=== PATIENT | female | born 1990 | race Caucasian/White ===

== ENCOUNTER 2019-06-09 16:12 | Inpatient (IN) | payer OTHER ==
[~2019-06-09] VITALS: Ht 160 cm; Wt 88.5 kg
[2019-06-09] MEDS ORDERED: PREN-380 PO (16:48)
[2019-06-09 17:02] VITALS: BP 123/69
[2019-06-09] MEDS ORDERED: LACTATED RINGERS 1,000 ML IV SCH (18:05)
[2019-06-09] MEDS ORDERED: CITRIC ACID/SODIUM CITRATE 30 ML UDC PO SCH (18:05)
[2019-06-09 18:44] LABS: BASOPHILS % (AUTO) 0.4 % (0.0-2.0); EOSINOPHILS # (AUTO) 0.1 K/uL (0-0.4); EOSINOPHILS % (AUTO) 0.8 % (0.0-4.0); HEMATOCRIT 37.7 % (36-48); HEMOGLOBIN 12.7 g/dL (12.0-16.0); LYMPHOCYTES # (AUTO) 1.8 K/uL (2.5-16.5); LYMPHOCYTES % (AUTO) 17.4 % (20.5-51.1); MEAN CORPUSCULAR HEMOGLOBIN 30 pg (27-31); MEAN CORPUSCULAR HGB CONC 34 g/dL (33-37); MEAN CORPUSCULAR VOLUME 89.2 fL (80-94); MONOCYTES # (AUTO) 0.7 K/uL (0.8-1.0); MONOCYTES % (AUTO) 6.3 % (1.7-9.3); NEUTROPHILS # (AUTO) 7.9 K/uL (1.8-7.7); NEUTROPHILS % (AUTO) 75.1 % (42.2-75.2); PLATELET COUNT (AUTO) 260 K/uL (140-450); RED BLOOD CELL COUNT(AUTO) 4.23 MIL/uL (4.20-5.40); RED CELL DISTRIBUTION WIDTH 15.2 % (11.6-13.7); WHITE BLOOD COUNT (AUTO) 10.5 K/uL (4.8-10.8)
[2019-06-09 19:07] LABS: ALBUMIN 2.7 g/dL (3.4-5.0); ANION GAP 16.8 (8-16); CREATININE 0.5 mg/dL (0.6-1.3); POTASSIUM 3.8 mmol/L (3.5-5.1); TOTAL BILIRUBIN 0.3 mg/dL (0.0-1.0)
[2019-06-09 19:15] LABS: APPEARANCE,URINE CLEAR (CLEAR); BILIRUBIN,URINE NEGATIVE (NEGATIVE); BLOOD, URINE NEGATIVE (NEGATIVE); COLOR,URINE YELLOW (YELLOW); LEUKOCYTE ESTERASE ,URINE NEGATIVE (NEGATIVE); NITRITE, URINE NEGATIVE (NEGATIVE); UGLUCOSE NEGATIVE (NEGATIVE)
[2019-06-09] MEDS ORDERED: CITRIC ACID/SODIUM CITRATE 30 ML UDC ONE (21:42)
[2019-06-09] MEDS ORDERED: MORPHINE PRES FREE 10 MG/10 ML AMP IV ONE (22:01)
[2019-06-09] MEDS ORDERED: fentaNYL 0.05 MG/ML VIAL ONE (22:01)
[2019-06-09] MEDS ORDERED: ePHEDrine 50 MG/ML VIAL ONE (22:11)
[2019-06-09] MEDS ORDERED: ONDANSETRON 4 MG/2 ML VIAL IVP PRN ×2 (22:45)
[2019-06-09] MEDS ORDERED: ceFAZolin 1,000 MG VIAL IVP ONE (22:45)
[2019-06-09] MEDS ORDERED: NALOXONE 0.4 MG/ML VIAL IVP PRN ×3 (22:45)
[2019-06-09] MEDS ORDERED: NALBUPHINE 10 MG/ML AMP IVP PRN (22:45)
[2019-06-09] MEDS ORDERED: OXYTOCIN 10 UNITS in LACTATED RINGERS 1,000 ML IV SCH (22:59)
[2019-06-09] MEDS ORDERED: BUPRENORPHINE 0.3 MG/ML VIAL IV PRN (23:00)
[2019-06-09] MEDS ORDERED: TEMAZEPAM 15 MG CAP PO PRN (23:00)
[2019-06-09] MEDS ORDERED: METHYLERGONOVINE 0.2 MG/ML AMP IM PRN (23:00)
[2019-06-09] MEDS ORDERED: diphenhydrAMINE 50 MG/ML VIAL ONE (23:14)
[2019-06-09] MEDS ORDERED: ONDANSETRON 4 MG/2 ML VIAL ONE (23:14)
[2019-06-09] MEDS: diphenhydrAMINE 50 MG/ML VIAL IVP PRN (23:18)
[2019-06-09] MEDS ORDERED: OXYTOCIN 20 UNITS/LR PREMIX 1,000 ML IV ONE (23:41)
[2019-06-10] MEDS: KETOROLAC 30 MG/ML VIAL IVP PRN ×3 (00:54→12:03)
[2019-06-10] MEDS: diphenhydrAMINE 50 MG/ML VIAL IVP PRN (03:20)
[2019-06-10] MEDS ORDERED: OXYTOCIN 20 UNITS in LACTATED RINGERS 1,000 ML IV SCH (07:25)
--- NOTE | 2019-06-10 09:06 | NUR ---
PATIENT HAS BEEN SCREENED AND CATEGORIZED LOW NUTRITION RISK. PATIENT WILL BE SEEN WITHIN 7 DAYS OF ADMISSION. 06/17/[address]
[2019-06-10] MEDS: HYDROcodone/APAP 5/325 MG 1 TAB TAB PO PRN (18:33)
[2019-06-10] MEDS: CALCIUM POLYCARBOPHIL 625 MG TAB PO SCH (20:47)
[2019-06-10] MEDS: DOCUSATE SOD/SENNA 50/8.6 MG 1 TAB PO SCH (20:48)
[2019-06-10] MEDS: BISACODYL 5 MG TABEC PO SCH (20:49)
[2019-06-10] MEDS ORDERED: SENNA 8.6 MG TAB PO SCH (21:00)
[2019-06-10] MEDS: oxyCODONE/APAP 5/325 MG 1 TAB TAB PO PRN (22:10)
[2019-06-11] MEDS: oxyCODONE/APAP 5/325 MG 1 TAB TAB PO PRN ×2 (02:07→05:55)
[2019-06-11] MEDS: BISACODYL 5 MG TABEC PO SCH ×3 (09:39→21:00)
[2019-06-11] MEDS: CALCIUM POLYCARBOPHIL 625 MG TAB PO SCH ×2 (09:39→21:00)
[2019-06-11] MEDS ORDERED: KETOROLAC 30 MG/ML VIAL ONE (10:08)
[2019-06-11] MEDS: KETOROLAC 30 MG/ML VIAL IVP PRN ×2 (10:16→17:08)
[2019-06-11] MEDS ORDERED: IBUPROFEN 800 MG TAB PO PRN (20:40)
[2019-06-11] MEDS: DOCUSATE SOD/SENNA 50/8.6 MG 1 TAB PO SCH (21:00)
[2019-06-11] MEDS: HYDROcodone/APAP 5/325 MG 1 TAB TAB PO PRN (21:03)
[2019-06-12] MEDS: HYDROcodone/APAP 5/325 MG 1 TAB TAB PO PRN ×3 (01:06→12:18)
[2019-06-12 06:53] LABS: HEMATOCRIT 33.7 % (36-48)
== END 2019-06-12 14:05 | disposition home or self-care (01) | DRG 540 ==
LOC: MLD 16:12 → OBSVTOIN 18:05 → MFCC 06-10 00:15
PROVIDERS: ADMIT Obstetrics & Gynecology; ATTEND Obstetrics & Gynecology
PROC: 10D00Z1 Extraction of Products of Conception, Low, Open Approach (ICD-10-PCS; principal; 2019-06-09 22:00)
PROC: 3E0234Z Introduction of Serum, Toxoid and Vaccine into Muscle, Percutaneous Approach (ICD-10-PCS; 2019-06-11)
DX: O42.92 Full-term premature rupture of membranes, unspecified as to length of time between rupture and onset of labor (principal); R71.0 Precipitous drop in hematocrit; O34.211 Maternal care for low transverse scar from previous cesarean delivery; O99.824 Streptococcus B carrier state complicating childbirth; Z37.0 Single live birth; Z3A.38 38 weeks gestation of pregnancy; Z23 Encounter for immunization
CPT/HCPCS: G0378 ×2; 36415; 51702; 80053; 81003; 85018; 85025; 86592; 86886; 86900; 86901; 90715; J0690; J1200; J1885; J2270; J2405; J2590; J3010; J7060; J7120